=== PATIENT | female | born 1985 | race Caucasian/White ===

== ENCOUNTER → 2016-07-20 | Outpatient (CLI) | payer BC ==
[~2016-07-20] MED LIST: ADIPEX-P37.5 MG PO; CEFTIN500 MG PO; FLAGYL500 MG PO; KLONOPIN2 MG PO; MULTIPLE VITAMI1 CAP PO; WELLBUTRIN 100100 MG PO
== END ==
LOC: ZCOL.LAB 17:37
DX: Z02.89 Encounter for other administrative examinations (principal)

== ENCOUNTER → 2016-07-20 | Outpatient (REF) ==
[2016-07-20 09:19] LABS: BASO % 0.1 % (0.0-2.0); EOS % 0.1 % (0-4.0); GRAN # 10.2 (1.4-6.5); GRAN % 69.6 % (42.2-75.2); LYMPH # 3.2 (1.2-3.4); LYMPH % 21.6 % (20.0-51.0); MEAN CELL VOLUME 90 fl (80.0-100.0); MEAN CORPUSCULAR HGB CONC 34 g/dl (33.0-37.0); MEAN PLATELET VOLUME 12.2 fl (7.4-10.4); MONO # 1.2 (0.1-0.6); MONO % 8.1 % (1.7-9.3); PLATELET COUNT 212 K/mm3 (130-400); RED BLOOD COUNT 3.06 M/mm3 (4.10-5.30); REDCELL DISTRIBUTION WIDTH-CV 13.2 % (11.5-14.5); WHITE BLOOD COUNT 14.6 K/mm3 (4.8-10.8)
[2016-07-20 09:24] LABS: HEMATOCRIT 27.4 % (37.0-47.0); HEMOGLOBIN 9.2 g/dl (12.5-16.0); MEAN CORPUSCULAR HEMOGLOBIN 30 pg (27.0-31.0)
[2016-07-20 09:31] LABS: ALBUMIN 3.1 gm/dL (3.5-5.0); BILIRUBIN,TOTAL 0.7 mg/dL (0.0-1.0); CALCIUM 8.3 mg/dL (8.4-10.2); CREATININE, serum 0.83 mg/dL (0.52-1.25); POTASSIUM 3.8 mmol/L (3.4-5.0); TOTAL PROTEIN 5.9 gm/dL (6.4-8.2)
[2016-07-20 15:27] LABS: BASO # 0.1 (0.0-0.2); BASO % 0.3 % (0.0-2.0); EOS % 0.1 % (0-4.0); GRAN # 10.9 (1.4-6.5); GRAN % 62.2 % (42.2-75.2); LYMPH # 4.9 (1.2-3.4); LYMPH % 28.2 % (20.0-51.0); MEAN CELL VOLUME 89 fl (80.0-100.0); MEAN CORPUSCULAR HGB CONC 33 g/dl (33.0-37.0); MEAN PLATELET VOLUME 12.5 fl (7.4-10.4); MONO # 1.5 (0.1-0.6); MONO % 8.6 % (1.7-9.3); PLATELET COUNT 255 K/mm3 (130-400); RED BLOOD COUNT 3.23 M/mm3 (4.10-5.30); REDCELL DISTRIBUTION WIDTH-CV 13.2 % (11.5-14.5); WHITE BLOOD COUNT 17.5 K/mm3 (4.8-10.8)
[2016-07-20 15:33] LABS: HEMATOCRIT 28.8 % (37.0-47.0); HEMOGLOBIN 9.6 g/dl (12.5-16.0); MEAN CORPUSCULAR HEMOGLOBIN 30 pg (27.0-31.0)
== END ==
LOC: ZMSC 08:51
PROVIDERS: Obstetrics & Gynecology
DX: Z01.89 Encounter for other specified special examinations (principal)

== ENCOUNTER 2016-07-22 11:22 | Observation (INO) | payer BC ==
[~2016-07-22] VITALS: Ht 160 cm; Wt 120.2 kg
[~2016-07-22 11:22] MED LIST changes: -ADIPEX-P37.5 MG PO; -MULTIPLE VITAMI1 CAP PO; -WELLBUTRIN 100100 MG PO
[2016-07-22 11:45] VITALS: BP 109/60; PULSE 91; TEMP 97.4
[2016-07-22] MEDS ORDERED: WELLBUTRIN 100100 MG PO (12:15)
[2016-07-22] MEDS ORDERED: ADIPEX-P37.5 MG PO (12:15)
[2016-07-22] MEDS ORDERED: MULTIPLE VITAMI1 CAP PO (12:17)
[2016-07-22 13:55] VITALS: BP 93/51; PULSE 63; TEMP 98.1
[2016-07-22 17:27] VITALS: BP 180/49; PULSE 65; TEMP 98.2
[2016-07-22 21:57] VITALS: BP 104/47; PULSE 87; TEMP 98.7
[2016-07-23 02:28] VITALS: BP 108/53; PULSE 66; TEMP 98.5
[2016-07-23 07:30] LABS: BASO % 0.3 % (0.0-2.0); EOS # 0.2 (0.0-0.7); EOS % 3.6 % (0-4.0); GRAN # 3.4 (1.4-6.5); GRAN % 54.4 % (42.2-75.2); MEAN CORPUSCULAR HGB CONC 32 g/dl (33.0-37.0); MEAN PLATELET VOLUME 11.5 fl (7.4-10.4); MONO # 0.6 (0.1-0.6); MONO % 9.1 % (1.7-9.3); PLATELET COUNT 210 K/mm3 (130-400); RED BLOOD COUNT 2.73 M/mm3 (4.10-5.30); REDCELL DISTRIBUTION WIDTH-CV 13.9 % (11.5-14.5); WHITE BLOOD COUNT 6.3 K/mm3 (4.8-10.8)
[2016-07-23 07:44] LABS: HEMATOCRIT 25.7 % (37.0-47.0); HEMOGLOBIN 8.1 g/dl (12.5-16.0); MEAN CELL VOLUME 94 fl (80.0-100.0); MEAN CORPUSCULAR HEMOGLOBIN 30 pg (27.0-31.0)
[2016-07-23 10:18] VITALS: BP 121/66; PULSE 77; TEMP 98.2
== END 2016-07-23 13:25 | disposition home or self-care (01) ==
LOC: EUO 11:22 → JCC 13:42
PROVIDERS: Obstetrics & Gynecology
DX: G89.18 Other acute postprocedural pain (principal); N99.820 Postprocedural hemorrhage of a genitourinary system organ or structure following a genitourinary system procedure; F41.8 Other specified anxiety disorders; F17.210 Nicotine dependence, cigarettes, uncomplicated; Z80.0 Family history of malignant neoplasm of digestive organs; Z80.41 Family history of malignant neoplasm of ovary; Z80.49 Family history of malignant neoplasm of other genital organs; E78.6 Lipoprotein deficiency
CPT/HCPCS: G0378; G0379; J1170; Q9967

== ENCOUNTER → 2016-07-26 | Outpatient (CLI) | payer BC ==
[~2016-07-26] MED LIST changes: +ADIPEX-P37.5 MG PO; +MULTIPLE VITAMI1 CAP PO; +WELLBUTRIN 100100 MG PO
== END ==
LOC: COL.RAD 09:51
DX: N28.89 Other specified disorders of kidney and ureter (principal); Z53.09 Procedure and treatment not carried out because of other contraindication

== ENCOUNTER → 2017-07-28 | Outpatient (CLI) | payer OTHER, MEDICAID | LOC: COL.RAD 08:44 | DX: M75.81 Other shoulder lesions, right shoulder (principal); M19.011 Primary osteoarthritis, right shoulder; M75.51 Bursitis of right shoulder; M79.601 Pain in right arm ==